=== PATIENT | female | born 1945 | race Caucasian/White ===

== ENCOUNTER 2018-01-13 11:17 | Emergency (ER) | payer OTHER ==
[~2018-01-13] VITALS: Ht 152.4 cm; Wt 54.4 kg
[2018-01-13] MEDS ORDERED: SKELAXIN800 MG PO (16:46)
[2018-01-13] MEDS ORDERED: KETO10TA2 PO (16:46)
== END 2018-01-13 16:52 | disposition home or self-care (01) ==
LOC: ER 11:17
DX: S30.0XXA Contusion of lower back and pelvis, initial encounter (principal); S70.01XA Contusion of right hip, initial encounter; S19.89XA Other specified injuries of other specified part of neck, initial encounter; W01.0XXA Fall on same level from slipping, tripping and stumbling without subsequent striking against object, initial encounter; Y93.89 Activity, other specified; Y92.63 Factory as the place of occurrence of the external cause; Y99.8 Other external cause status